=== PATIENT | female | born 1990 | race Caucasian/White ===

== ENCOUNTER → 2017-08-31 | Outpatient (CLI) | payer OTHER ==
[~2017-08-31] MED LIST: ACET500 PO; ALBU90OI INH; AMOCLA875 PO; AMOX500 PO; CEPH500 PO; CIPR500 PO; CYCL10 PO; Cleocin HCl300 MG PO; HYDACE5 PO; HYDACE5325 PO; IBUP800 PO; NAPR500 PO; OXYACE5T PO; PENVK500 PO; PROM25 PO; PROM25S PR; Percocet 5-3251 EACH PO; RXCYCL10 PO; RXHYD5325 PO; RXPROM25S PR; TRAM50 PO; VICODIN 5-3001 EACH; Zithromax250 MG PO; Zofran Odt4 MG SL; Zofran4 MG PO
[2017-08-31 19:52] LABS: Influenza A Positive (NEGATIVE); Influenza B Negative (NEGATIVE)
== END | disposition home or self-care (01) ==
LOC: LAB EV 17:38
PROVIDERS: Physician Assistant
DX: R50.9 Fever, unspecified (principal)
CPT/HCPCS: 87070; 87077; 87185; 87804

== ENCOUNTER 2018-11-04 11:45 | Emergency (ER) | payer OTHER ==
[~2018-11-04] VITALS: Ht 152.4 cm; Wt 63.5 kg
[2018-11-04 14:53] LABS: Hematocrit 40.5 % (33.0-51.0); Hemoglobin 13.8 g/dL (11.5-16.0); Mean Corpuscular HGB 32.8 pg (26.0-34.0); Mean Corpuscular HGB Conc 34.1 g/dL (31.5-36.5); Mean Corpuscular Volume 96 fL (80-100); Mean Platelet Volume 9.3 fL (9.1-12.4); Platelet Count 374 K/mm3 (150-400); RDW Coefficient Variation 13.8 % (11.7-14.2); RDW Standard Deviation 47.8 fL (35.1-46.3); Red Blood Cell Count 4.21 M/mm3 (3.80-5.20); White Blood Cell Count 8.19 K/mm3 (4.00-11.30)
[2018-11-04 15:43] LABS: BASOPHILS ABSOLUTE MAN 0.08 K/mm3 (0.00-0.23); BASOPHILS PERCENT MAN 1 % (0-2); EOSINOPHILS ABSOLUTE MAN 0.24 K/mm3 (0.00-0.68); EOSINOPHILS PERCENT MAN 3 % (0-6); LYMPHOCYTES ABSOLUTE MAN 1.71 K/mm3 (0.84-5.20); LYMPHOCYTES PERCENT MAN 21 % (21-46); MONOCYTES ABSOLUTE MAN 0.65 K/mm3 (0.16-1.47); MONOCYTES PERCENT MAN 8 % (4-13); NEUTROPHILS ABSOLUTE MAN 5.48 K/mm3 (1.96-9.15); SEG NEUTROPHILS PERCENT MAN 67 % (41-73); TOTAL CELLS COUNTED 100
== END 2018-11-04 16:10 | disposition home or self-care (01) ==
LOC: ER 11:45
PROVIDERS: Physician Assistant
DX: R59.0 Localized enlarged lymph nodes (principal); Z87.442 Personal history of urinary calculi; Z87.891 Personal history of nicotine dependence
CPT/HCPCS: 70491; 85007; 85027; 99283-25; Q9967

== ENCOUNTER 2019-04-20 15:21 | Emergency (ER) | payer OTHER ==
[~2019-04-20] VITALS: Ht 152.4 cm; Wt 59.0 kg
== END 2019-04-20 16:17 | disposition home or self-care (01) ==
LOC: ER 15:21
DX: J02.9 Acute pharyngitis, unspecified (principal); Z87.891 Personal history of nicotine dependence
CPT/HCPCS: 87081; 87430; 99283

== ENCOUNTER 2019-09-10 21:18 | Emergency (ER) | payer OTHER ==
[~2019-09-10] VITALS: Ht 152.4 cm; Wt 59.0 kg
== END 2019-09-10 23:07 | disposition left against medical advice (07) ==
LOC: ER 21:18
DX: Z53.21 Procedure and treatment not carried out due to patient leaving prior to being seen by health care provider (principal)

== ENCOUNTER 2019-12-31 23:13 | Emergency (ER) | payer OTHER ==
[~2019-12-31] VITALS: Ht 152.4 cm; Wt 59.0 kg
== END 2020-01-01 02:15 | disposition left against medical advice (07) ==
LOC: ER 23:13
DX: Z53.21 Procedure and treatment not carried out due to patient leaving prior to being seen by health care provider (principal)

== ENCOUNTER 2020-08-29 04:32 | Emergency (ER) | payer OTHER ==
[~2020-08-29] VITALS: Ht 152.4 cm; Wt 59.0 kg
[2020-08-29] MEDS ORDERED: Veetids 500500 MG PO (04:49)
[2020-08-29] MEDS ORDERED: IBU600 MG PO (04:49)
== END 2020-08-29 05:03 | disposition home or self-care (01) ==
LOC: ER 04:32
DX: K04.7 Periapical abscess without sinus (principal); Z87.891 Personal history of nicotine dependence; Z87.442 Personal history of urinary calculi
CPT/HCPCS: 99282; A9270

== ENCOUNTER 2020-10-20 20:54 | Emergency (ER) | payer OTHER ==
[~2020-10-20] VITALS: Ht 152.4 cm; Wt 61.2 kg
[~2020-10-20 20:54] MED LIST changes: +IBU600 MG PO; +Veetids 500500 MG PO
== END 2020-10-20 22:50 | disposition home or self-care (01) ==
LOC: ER 20:54
DX: S61.011A Laceration without foreign body of right thumb without damage to nail, initial encounter (principal); Z87.442 Personal history of urinary calculi; Z87.891 Personal history of nicotine dependence; W25.XXXA Contact with sharp glass, initial encounter
CPT/HCPCS: 12001; 90471; 90714; 99282-25

== ENCOUNTER 2020-10-27 10:47 | Emergency (ER) | payer OTHER ==
[~2020-10-27] VITALS: Ht 152.4 cm; Wt 59.0 kg
== END 2020-10-27 11:15 | disposition home or self-care (01) ==
LOC: ER 10:47
DX: S61.011D Laceration without foreign body of right thumb without damage to nail, subsequent encounter (principal); Z87.891 Personal history of nicotine dependence; X58.XXXD Exposure to other specified factors, subsequent encounter

== ENCOUNTER 2021-05-31 20:12 | Emergency (ER) | payer OTHER ==
[~2021-05-31] VITALS: Ht 152.4 cm; Wt 59.0 kg
[2021-05-31] MEDS ORDERED: AMOCLA875 PO (21:25)
== END 2021-05-31 21:39 | disposition home or self-care (01) ==
LOC: ER 20:12
DX: K04.7 Periapical abscess without sinus (principal); Z87.891 Personal history of nicotine dependence
CPT/HCPCS: 41800; 99282-25; A9270

== ENCOUNTER 2021-06-14 15:17 | Emergency (ER) | payer OTHER ==
[~2021-06-14] VITALS: Ht 152.4 cm; Wt 56.7 kg
[2021-06-14 17:24] LABS: BASOPHILS ABSOLUTE AUTO 0.06 K/mm3 (0.00-0.23); BASOPHILS PERCENT AUTO 1 % (0-2); EOSINOPHILS ABSOLUTE AUTO 0.19 K/mm3 (0.00-0.68); EOSINOPHILS PERCENT AUTO 2 % (0-6); Hematocrit 35.6 % (33.0-51.0); Hemoglobin 12.2 g/dL (11.5-16.0); IMMATURE GRAN ABSOLUTE AUTO 0.02 K/mm3 (0.00-0.10); IMMATURE GRAN PERCENT AUTO 0 % (0-1); LYMPHOCYTES ABSOLUTE AUTO 2.43 K/mm3 (0.84-5.20); LYMPHOCYTES PERCENT AUTO 30 % (21-46); MONOCYTES ABSOLUTE AUTO 0.75 K/mm3 (0.16-1.47); MONOCYTES PERCENT AUTO 9 % (4-13); Mean Corpuscular HGB 30.8 pg (26.0-34.0); Mean Corpuscular HGB Conc 34.3 g/dL (31.5-36.5); Mean Corpuscular Volume 90 fL (80-100); Mean Platelet Volume 9.7 fL (9.1-12.4); NEUTROPHILS ABSOLUTE AUTO 4.79 K/mm3 (1.96-9.15); NEUTROPHILS PERCENT AUTO 58 % (41-73); Platelet Count 435 K/mm3 (150-400); RDW Standard Deviation 42.2 fL (35.1-46.3); Red Blood Cell Count 3.96 M/mm3 (3.80-5.20); White Blood Cell Count 8.24 K/mm3 (4.00-11.30)
== END 2021-06-14 17:26 | disposition home or self-care (01) ==
LOC: ER 15:17
PROVIDERS: Physician Assistant
DX: O03.9 Complete or unspecified spontaneous abortion without complication (principal); Z3A.01 Less than 8 weeks gestation of pregnancy
CPT/HCPCS: 36415; 76801; 76817; 84702; 85025; 86900; 86901; 99284-25

== ENCOUNTER 2024-07-13 12:37 | Emergency (ER) | payer OTHER ==
[~2024-07-13] VITALS: Ht 152.4 cm; Wt 72.6 kg
[2024-07-13 12:46] VITALS: BP 137/93
[2024-07-13] MEDS ORDERED: Clindamycin HCl 150 MG Cap PO ONE (12:50)
[2024-07-13] MEDS ORDERED: Dexamethasone Sod Phos 10 MG/ML 1ML VIAL PO ONE (12:50)
[2024-07-13] MEDS ORDERED: OxyCODONE 5 mg/Acetamin 325 mg TABLET PO ONE (12:50)
[2024-07-13] MEDS ORDERED: CLIN150 PO (12:54)
[2024-07-13] MEDS ORDERED: Percocet 5-3251 EACH PO (12:54)
== END 2024-07-13 13:33 | disposition home or self-care (01) ==
LOC: ER 12:37
DX: K04.7 Periapical abscess without sinus (principal); Z87.891 Personal history of nicotine dependence
CPT/HCPCS: 99282; A9270; J1100

== ENCOUNTER → 2024-11-27 | Outpatient (CLI) | payer OTHER ==
[~2024-11-27] MED LIST changes: +CLIN150 PO
== END | disposition home or self-care (01) ==
LOC: LAB 14:51 → LAB SHORT 14:51
DX: R10.32 Left lower quadrant pain (principal)
CPT/HCPCS: 87086